=== PATIENT | female | born 1985 | race Caucasian/White ===

== ENCOUNTER 2021-04-12 07:32 | Day surgery (SDC) | payer BC ==
[2021-04-12] MEDS: Lactated Ringers 1,000 ML IV SCH ×4 (07:10→14:30)
[~2021-04-12 07:32] MED LIST: Bupivacaine 0.5% 30 ML SDV ONE; Ketorolac 30 MG/ML SDV ONE; Lidocaine 1% 4 ML ONE; Lidocaine 1%/Sod Bicarbonate in NS 8.4% 1 ML Syringe IDERM PRN; Midazolam 1 MG/ML 2 ML SDV ONE; Ondansetron 4 MG/2 ML SDV ONE; Propofol 200 MG/20 ML SDV ONE; Rocuronium 50 MG/5 ML Vial ONE; Sodium Chloride 0.9% 10 ML Syringe FLUSH SCH; Succinylcholine/Sod PF 100 MG/5 ML SYRINGE IV ONE; ceFAZolin 1 GM Vial ONE; fentaNYL 250 MCG/5 ML SDV ONE
[2021-04-12] MEDS ORDERED: Lidocaine 1% 2 ML ONE (07:54)
[2021-04-12] MEDS ORDERED: Dexamethasone 4 MG/ML 5 ML MDV ONE (08:22)
[2021-04-12] MEDS ORDERED: HYDROmorphone 0.5 MG/0.5 ML Syringe IVPUSH PRN (08:25)
[2021-04-12] MEDS ORDERED: fentaNYL 100 MCG/2 ML SDV IVPUSH PRN (08:25)
[2021-04-12] MEDS: Lidocaine 1% with EPINEPHrine 1:100,000 20 ML MDV ONE ×2 (08:27→08:38)
[2021-04-12] MEDS ORDERED: Lactated Ringers 1,000 ML ONE (08:42)
[2021-04-12] MEDS ORDERED: Metoclopramide 10 MG/2 ML SDV ONE (08:44)
[2021-04-12] MEDS ORDERED: HYDROmorphone 0.5 MG/0.5 ML Syringe ONE (09:19)
[2021-04-12] MEDS ORDERED: Acetaminophen/oxyCODONE 325-5 MG Tab PO ONE (10:05)
[2021-04-12] MEDS ORDERED: Glycopyrrolate 1 MG Tab PO ONE ×3 (13:17→15:30)
[2021-04-12] MEDS ORDERED: Atropine 0.4 MG/ML SDV ONE (14:35)
[2021-04-12] MEDS ORDERED: Atropine 0.4 MG/ML SDV IVPUSH ONE (14:40)
== END 2021-04-12 15:41 | disposition home or self-care (01) ==
LOC: JD.SDS 07:32
PROVIDERS: ATTEND Obstetrics & Gynecology
DX: D25.9 Leiomyoma of uterus, unspecified (principal); N70.01 Acute salpingitis; E78.00 Pure hypercholesterolemia, unspecified; E03.9 Hypothyroidism, unspecified; Z98.890 Other specified postprocedural states; Z79.899 Other long term (current) drug therapy; Z79.890 Hormone replacement therapy
CPT/HCPCS: 00944; 36415; 80048; 85025; 86850; 86900; 86901; A9270-GY; J0330; J0461; J0690; J1100; J1170; J1885; J2250; J2405; J2704; J2765; J3010; J3490; J7120